=== PATIENT | female | born 1975 | race Caucasian/White ===

== ENCOUNTER 2022-09-25 12:08 | Emergency (ER) | payer OTHER ==
[~2022-09-25] VITALS: Ht 172.7 cm; Wt 79.4 kg
[2022-09-25] MEDS ORDERED: Atarax10 MG (13:05)
[2022-09-25] MEDS ORDERED: NAPR500 PO (13:14)
[2022-09-25] MEDS ORDERED: CYCL10 PO (13:20)
== END 2022-09-25 13:54 | disposition home or self-care (01) ==
LOC: ER 12:08
DX: M54.2 Cervicalgia (principal); M47.812 Spondylosis without myelopathy or radiculopathy, cervical region; R59.0 Localized enlarged lymph nodes; Z79.899 Other long term (current) drug therapy
CPT/HCPCS: 72040; J1100

== ENCOUNTER 2022-09-25 16:41 | Emergency (ER) | payer OTHER ==
[~2022-09-25] VITALS: Ht 172.7 cm; Wt 79.4 kg
[~2022-09-25 16:41] MED LIST: Atarax10 MG; CYCL10 PO; NAPR500 PO
== END 2022-09-25 20:37 | disposition home or self-care (01) ==
LOC: ER 16:41
DX: R06.02 Shortness of breath (principal); Z79.899 Other long term (current) drug therapy
CPT/HCPCS: 71045; 93005; 93010; A9270